=== PATIENT | female | born 1960 | race Caucasian/White ===

== ENCOUNTER → 2016-06-18 | Outpatient (CLI) | payer BC ==
[~2016-06-18] MED LIST: OXYC-57 PO
== END | disposition home or self-care (01) ==
LOC: C.PAPS 08:31
PROVIDERS: ATTEND Family Medicine
DX: Z01.419 Encounter for gynecological examination (general) (routine) without abnormal findings (principal)

== ENCOUNTER → 2016-06-20 | Outpatient (CLI) | payer BC ==
[2016-06-20 13:16] LABS: BASO % 0.8 %; BASO ABS # 0.05 K/uL (0-0.2); COMPLETE YES; EOS % 5.2 %; HEMATOCRIT 39.7 % (37-47); IG% 0.2 %; LYMPH % 37.9 %; LYMPH ABS # 2.32 K/uL (1.2-3.4); MEAN CELL VOLUME 87.3 fL (80-100); MEAN CORPUSCULAR HEMOGLOBIN 29.9 pg (25-34); MEAN CORPUSCULAR HGB CONC 34.3 g/dl (32-36); MEAN PLATELET VOLUME 11.1 fL (7.4-10.4); NEUT % 45.9 %; PLATELET COUNT 254 K/uL (130-400); RED BLOOD COUNT 4.55 M/uL (4.2-5.4); WHITE BLOOD COUNT 6.12 K/uL (4.8-10.8)
[2016-06-20 13:17] LABS: BLOOD UREA NITROGEN 24 mg/dl (7-18); BUN/CREATININE RATIO 31.4 (10-20); CALCIUM 8.6 mg/dl (8.5-10.1); CARBON DIOXIDE 27 mmol/L (21-32); CHLORIDE 107 mmol/L (98-107); CHOLESTEROL 200 mg/dl (0-200); CREATININE 0.77 mg/dl (0.60-1.20); GLUCOSE 93 mg/dl (70-99); POTASSIUM 3.8 mmol/L (3.5-5.1); SODIUM 142 mmol/L (136-145); TRIGLYCERIDES 46 mg/dl (0-150); VERY LOW DENSITY LIPOPROT CALC 9 mg/dl
[2016-06-20 13:20] LABS: CHOLESTEROL/HDL RATIO 2.2; HDL CHOLESTEROL 90 mg/dl; LDL CHOLESTEROL CALCULATED 101 mg/dl
== END | disposition home or self-care (01) ==
LOC: C.LABMFLN 11:22
PROVIDERS: ATTEND Family Medicine
DX: Z13.1 Encounter for screening for diabetes mellitus (principal); Z13.220 Encounter for screening for lipoid disorders; Z13.0 Encounter for screening for diseases of the blood and blood-forming organs and certain disorders involving the immune mechanism; Z11.59 Encounter for screening for other viral diseases